=== PATIENT | female | born 1995 | race Caucasian/White ===

== ENCOUNTER → 2025-06-20 13:37 | Outpatient (BNVA) | payer MEDICAID, SELFPAY | PROVIDERS: Visit Provider Nurse Practitioner Family | DX: E04.9 Nontoxic goiter, unspecified (principal); R05.9 Cough, unspecified | CPT/HCPCS: 71046; 80053; 83516; 84436; 84443; 84481; 85025; 86376; 86800 ==

== ENCOUNTER 2025-07-04 10:39 | Outpatient (CLI) | payer MEDICAID, SELFPAY ==
--- NOTE | 2025-07-04 11:15 | USR_ITS ---
PROCEDURE INFORMATION: Exam: US Soft Tissue Head and Neck, Thyroid Exam date and time: 07/04/2025 10:47 AM Age: 30 years old Clinical indication: Condition or disease; Other: Personal history of other endocrine, nutritional. . . ; Additional info: Z86.39 - personal history of other endocrine, nutritional. . . TECHNIQUE: Imaging protocol: Real-time ultrasound scan of the neck with image documentation. Exam focused on the thyroid. COMPARISON: No relevant prior studies available. FINDINGS: Right thyroid lobe: Right thyroid lobe measures 4.0 x 1.8 x 1.4 cm. No distinct nodule. Left thyroid lobe: Left lobe measures 3.7 x 1.8 x 1.1 cm. No distinct nodule. Isthmus: No nodules. Other findings: Coarse, heterogeneous echotexture bilaterally. No distinct isolated nodule. US/US thyroid [id number] IMPRESSION: Normal-size of the thyroid gland, with coarse, heterogeneous echotexture bilaterally. No isolated nodule.
== END 2025-07-04 10:40 | disposition home or self-care (01) ==
LOC: RAD 10:41
PROVIDERS: PCP Nurse Practitioner Family; Visit Provider Nurse Practitioner Family
DX: Z86.39 Personal history of other endocrine, nutritional and metabolic disease (principal); E04.9 Nontoxic goiter, unspecified; E07.89 Other specified disorders of thyroid
CPT/HCPCS: 76536